=== PATIENT | female | born 1945 | race Caucasian/White ===

== ENCOUNTER 2017-10-08 08:35 | Outpatient (CLI) | payer MEDICARE ==
--- NOTE | 2017-10-08 13:16 | MRI ---
MRI CERVICAL SPINE WITH AND WITHOUT CONTRAST: HISTORY: Meningioma, stated as the reason for the exam. COMPARISON: There are no comparison cervical spine studies. Comparison made to prior brain MRI exam, which revea led postoperative changes in the left parietal region. TECHNIQUE: Multiplanar, multisequential imaging of the cervical spine obtained. Post contrast images obtained w ith administration of 6 mL of MultiHance IV. FINDINGS: The cervical vertebrae maintain normal height and alignment. The vertebral body signal is normal. D isk spaces are preserved. Small focal disk protrusion is noted at C5-C6. This impinges on and mildly flattens the anterior cor d. No other significant disk bulge or spondylitic change is seen at the other cervical levels. Cervical cord signal is normal. No abnormal enhancement is identified. IMPRESSION: 1. Small central disk protrusion at C5-C6 impinges on the anterior cord. 2. MRI cervical spine otherwise unremarkable. POS: [facility]
[2017-10-08] MEDS ORDERED: Gadobenate Dimeglumine 529 MG/1 ML (20ML VIAL) ONE (16:04)
== END 2017-10-08 08:36 | disposition home or self-care (01) ==
LOC: TBSIIMAG 08:35
PROVIDERS: ATTEND Surgery
DX: D32.9 Benign neoplasm of meninges, unspecified (principal)
CPT/HCPCS: 72156; A9579

== ENCOUNTER 2017-11-19 09:28 | Outpatient (CLI) | payer MEDICARE ==
--- NOTE | 2017-11-19 11:11 | RAD ---
THREE VIEWS CEREVICAL SPINE: Date: 11-19-17 Comparison: None. History: Neck pain, arm pain, cervical herniated disc. FINDINGS: Neutral flexion and extension lateral imaging is provided. The neutral imaging demonstrates no zenaida listhesis or retrolisthesis. Upon flexion, there is mild anterolisthesis of C2 on C3 measuring 2 mm, of C3 on C4 measuring 2-3 mm, and of C4 on C5 measuring 3 mm. With extension, there is no anterolisth esis or retrolisthesis at any level. IMPRESSION: Multilevel mild anterolisthesis on flexion imaging as detailed above, most prominent at C4-5. POS: [facility]
== END 2017-11-19 09:29 | disposition home or self-care (01) ==
LOC: TBSIIMAG 09:28
PROVIDERS: ATTEND Surgery
DX: M50.20 Other cervical disc displacement, unspecified cervical region (principal); M43.12 Spondylolisthesis, cervical region
CPT/HCPCS: 72040

== ENCOUNTER 2019-08-24 07:46 | Outpatient (CLI) | payer MEDICARE ==
--- NOTE | 2019-08-24 10:07 | MRI ---
EXAM: MRI of the abdomen without and with contrast COMPARISON: None HISTORY: Cirrhosis of the liver and enlarged liver 3 years ago. Right upper quadrant abdominal pain TECHNIQUE: Multiplanar multi sequence MR images were taken of the abdomen without and with IV contras t. [An MRCP was performed.] FINDINGS: Liver: No focal liver lesions or intrahepatic ductal dilatation. There is signal loss throughout the liver on out of phase images consistent with diffuse fatty infiltration. No abnormal enhancement. Gallbladder: No filling defects or gallbladder wall thickening. Common bile duct: Normal caliber without filling defects Adrenal glands: Unremarkable. Kidneys: There is a 1.5 cm right renal cyst. No abnormal areas of enhancement. Spleen: Unremarkable. Pancreas: Unremarkable. No abnormal enhancement. Retroperitoneum: No enlarged lymph nodes Bones: No marrow signal abnormality. IMPRESSION: 1. Fatty liver 2. Right renal cyst
== END 2019-08-24 07:47 | disposition home or self-care (01) ==
LOC: BICMRI 07:46
PROVIDERS: ATTEND Internal Medicine Gastroenterology
DX: K74.60 Unspecified cirrhosis of liver (principal); K76.0 Fatty (change of) liver, not elsewhere classified; N28.1 Cyst of kidney, acquired
CPT/HCPCS: 74183; 82565

== ENCOUNTER 2020-12-14 08:46 | Outpatient (CLI) | payer MEDICARE ==
[2020-12-14] MEDS ORDERED: Iopamidol 370 76% 100 ML VIAL ONE (14:20)
== END 2020-12-14 08:47 | disposition home or self-care (01) ==
LOC: BICCT 08:46
PROVIDERS: ATTEND Physician Assistant Medical
DX: K74.60 Unspecified cirrhosis of liver (principal); I85.00 Esophageal varices without bleeding; K21.9 Gastro-esophageal reflux disease without esophagitis; R14.0 Abdominal distension (gaseous); R10.13 Epigastric pain; R10.30 Lower abdominal pain, unspecified; R16.2 Hepatomegaly with splenomegaly, not elsewhere classified; K76.6 Portal hypertension; K63.89 Other specified diseases of intestine; Z90.710 Acquired absence of both cervix and uterus; K76.0 Fatty (change of) liver, not elsewhere classified
CPT/HCPCS: 74177; 82565; Q9967

== ENCOUNTER 2021-06-07 10:13 | Outpatient (CLI) | payer MEDICARE | END 2021-06-07 10:14 | disposition home or self-care (01) | LOC: BICCT 10:13 | PROVIDERS: ATTEND Physician Assistant Medical | DX: K74.60 Unspecified cirrhosis of liver (principal); I85.00 Esophageal varices without bleeding; R10.30 Lower abdominal pain, unspecified; R18.8 Other ascites; R60.0 Localized edema | CPT/HCPCS: 74177; 82565 ==

== ENCOUNTER 2022-02-20 05:00 | Outpatient (CLI) | payer MEDICARE | END 2022-02-20 05:01 | disposition home or self-care (01) | LOC: TBSIIMAG 05:00 | PROVIDERS: ATTEND Surgery | DX: D49.6 Neoplasm of unspecified behavior of brain (principal) | CPT/HCPCS: 70553 ==

== ENCOUNTER 2022-05-01 08:55 | Day surgery (SDC) | payer MEDICARE ==
[2022-04-30 09:36] VITALS: BMI 22.5
[2022-05-01 10:04] VITALS: BP 154/69; TEMP 98.9
[2022-05-02 11:47] LABS: Ref Lab Test Ordered Beta Amyloid 42/40 C; Reference Lab Name LABCORP
[2022-05-02 11:50] LABS: Ref Lab Test Ordered AFP CSF; Reference Lab Name LABCORP
[2022-05-02 11:52] LABS: Reference Lab Name LABCORP
[2022-05-02 11:57] LABS: Ref Lab Test Ordered Fluid Cytology; Reference Lab Name LABCORP
[2022-05-02 11:58] LABS: Reference Lab Name LABCORP
[2022-05-02 15:26] LABS: Ref Lab Test Ordered CEA CSF; Reference Lab Name LABCORP
== END 2022-05-01 11:30 | disposition home or self-care (01) ==
LOC: RAD 08:55
PROVIDERS: ATTEND Surgery
PROC: 009U3ZX Drainage of Spinal Canal, Percutaneous Approach, Diagnostic (ICD-10-PCS; principal; 2022-05-01)
DX: G31.9 Degenerative disease of nervous system, unspecified (principal); Z88.0 Allergy status to penicillin; Z88.5 Allergy status to narcotic agent; Z88.6 Allergy status to analgesic agent; Z88.8 Allergy status to other drugs, medicaments and biological substances
CPT/HCPCS: 62270; 82378; 83615; 83873; 83916

== ENCOUNTER 2022-05-02 10:21 | Outpatient (CLI) | payer MEDICARE ==
[2022-05-02] MEDS ORDERED: Magnevist 469MG/ML 20 ML VIAL ONE (14:44)
== END 2022-05-02 10:22 | disposition home or self-care (01) ==
LOC: MRI 10:21
PROVIDERS: ATTEND Surgery
DX: G31.9 Degenerative disease of nervous system, unspecified (principal)
CPT/HCPCS: 70553; 82565; 95816; 95957; A9579